=== PATIENT | female | born 1975 | race American Indian/Alaskan Native ===

== ENCOUNTER 2017-12-11 08:54 | Outpatient (CLI) | payer BC ==
--- NOTE | 2017-12-11 14:44 | Cat Scan Report ---
FINAL REPORT EXAM: CT ABDOMEN PELVIS W CON HISTORY: EPIGASTRIC ABDOMINAL TENDERNESS, EPIGASTRIC PAIN COMPARISON: None. TECHNIQUE: Multiple contiguous axial images were obtained from the lung bases to the pubic symphysis after administration of IV contrast. Reformatted sagittal and coronal images were available for review. FINDINGS: Lung bases: Normal. Visualized heart and mediastinum: Normal. Liver: Normal. Spleen: Normal. Pancreas: Normal. Gallbladder and Biliary Tree: No calcified gallstones. No biliary ductal dilatation. Adrenal glands: Normal. Kidneys: Symmetric enhancement to both kidneys. No hydronephrosis. Bladder: Normal. Pelvic organs: Mildly heterogeneous uterus. 2 centimeter corpus luteum cyst within the right ovary. Bowel: No evidence of bowel obstruction. No focal wall thickening. Normal appendix without surrounding inflammatory change. Peritoneum: No significant mesenteric adenopathy. No free air or free fluid. Vasculature: Abdominal aorta is normal in caliber without evidence of aneurysm. Normal appearance of the portal venous system and the inferior vena cava. Bones and soft tissues: No suspicious osseous lesions.No acute fracture or dislocation. Soft tissues are normal. IMPRESSION: No acute intra-abdominal pathology. Mildly heterogeneous uterus that may represent the presence of fibroids. Corpus luteum cyst within the right ovary.
== END 2017-12-11 08:55 | disposition home or self-care (01) ==
LOC: CT 08:54
PROVIDERS: ATTEND Internal Medicine Gastroenterology
DX: N83.11 Corpus luteum cyst of right ovary (principal); K66.0 Peritoneal adhesions (postprocedural) (postinfection); K30 Functional dyspepsia; Z85.09 Personal history of malignant neoplasm of other digestive organs
CPT/HCPCS: 74177; Q9967